=== PATIENT | male | born 1990 ===

== ENCOUNTER → 2024-07-07 08:30 | Outpatient (BNV) | payer OTHER, SELFPAY | PROVIDERS: Visit Provider Internal Medicine | DX: R00.0 Tachycardia, unspecified (principal) | CPT/HCPCS: 93248 ==

== ENCOUNTER → 2024-07-07 14:30 | Outpatient (REF) | payer OTHER, SELFPAY ==
--- NOTE | 2024-07-07 | HM_ITS ---
* Total monitoring time 12 days and 12 hours. * Underlying rhythm is sinus. Evidence of sinus tachycardia. * Rare ventricular ectopy. * No significant pauses or high-grade AV blocks. * Patient's symptoms listed include irregular heartbeat, numb chest pain, shaky, associated with sinus rhythm. MTDD
== END ==
LOC: HO.CARD 14:30
PROVIDERS: Visit Provider Family Medicine
DX: R00.2 Palpitations (principal)
CPT/HCPCS: 93246